=== PATIENT | male | born 1980 | race Caucasian/White ===

== ENCOUNTER 2018-11-23 18:13 | Emergency (ER) | payer MEDICAID, OTHER ==
[~2018-11-23] VITALS: Ht 195.6 cm; Wt 130.8 kg
[2018-11-23] MEDS ORDERED: SODIUM CHLORIDE FLUSH 10ML SYR IVF ONE (18:30)
[2018-11-23 18:55] LABS: BASOPHILS # (AUTO) 0.05 x10^3/uL (0-0.1); BASOPHILS % (AUTO) 1 % (0-1); EOSINOPHILS % (AUTO) 3 % (1-7); LYMPHOCYTES # (AUTO) 2.26 x10^3/uL (1-3.4); LYMPHOCYTES % (AUTO) 28 % (22-44); MD NO; MEAN CORPUSCULAR HEMOGLOBIN 31.6 pg (27.5-34.5); MEAN CORPUSCULAR VOLUME 95.6 fL (81-97); MEAN PLATELET VOLUME 7.6 fL (7.4-10.4); MONOCYTES # (AUTO) 0.52 x10^3/uL (0.2-0.8); MONOCYTES % (AUTO) 7 % (2-9); NEUTROPHILS # (AUTO) 5.03 x10^3/uL (1.8-6.8); NEUTROPHILS % (AUTO) 62 % (42-75); PLATELET COUNT 278 x10^3/uL (130-400); RED BLOOD COUNT 5.02 x10^6/uL (4.38-5.82)
[2018-11-23 19:05] LABS: ALBUMIN 4.4 g/dL (3.4-5.0); ANION GAP 6 mmol/L (5-15); CHLORIDE 108 mmol/L (98-107)
[2018-11-23 19:08] LABS: ALANINE AMINOTRANSFERASE 40 U/L (12-78); ALKALINE PHOSPHATASE 69 U/L (45-117); BILIRUBIN,TOTAL 1.1 mg/dL (0.2-1.0); TOTAL PROTEIN 7.4 g/dL (6.4-8.2)
[2018-11-23 19:11] LABS: MICROSCOPIC INDICATED
[2018-11-23 19:21] LABS: CULTURE INDICATED? NO
[2018-11-23] MEDS ORDERED: ONDANSETRON 2MG/ML, 2ML ONE (19:54)
[2018-11-23] MEDS ORDERED: MORPHINE SULFATE 4 MG/ML, 1ML ONE (19:54)
[2018-11-23] MEDS ORDERED: ONDANSETRON 2MG/ML, 2ML IVPush ONE (20:00)
[2018-11-23] MEDS ORDERED: MORPHINE SULFATE 4 MG/ML, 1ML IVPush PRN (20:00)
--- NOTE | 2018-11-23 20:01 | NUR ---
first contact with pt. pt c/o right flank and back pain x 1 week with nausea, worse today, denies painful urination, hx kidney stone and infection. pt's aox4. resps even and unlabored. all monitors in place. call light within reach.pa at bedside to evaluate.
--- NOTE | 2018-11-23 20:06 | NUR ---
pt medicated per emar. pt tolerated well.
--- NOTE | 2018-11-23 20:21 | NUR ---
PT REMAINS US STILL.
[2018-11-23 20:28] VITALS: BP 115/67
--- NOTE | 2018-11-23 20:46 | NUR ---
ORTHOSTATIC IS DONE.
[2018-11-23] MEDS ORDERED: OXYcodone/APAP 7.5/325MG TABLET ONE (21:19)
--- NOTE | 2018-11-23 21:21 | NUR ---
pt medicated per emar for pain. pt tolerated well.
--- NOTE | 2018-11-23 21:26 | NUR ---
PT GIVEN DC INSTRUCTIONS AND SCRIPTS. PT EDUCATED REGARDING DC MEDICATIONS. PT WHEELED TO DC. PT'S AOX4. RESPS EVEN AND UNLABORED. NO ACUTE DISTRESS AT DC.
[2018-11-23] MEDS ORDERED: OXYcodone/APAP 7.5/325MG TABLET PO ONE (21:30)
== END 2018-11-23 21:27 | disposition home or self-care (01) ==
LOC: ED 19:58
DX: R10.11 Right upper quadrant pain (principal); R11.0 Nausea; R16.1 Splenomegaly, not elsewhere classified; Z87.891 Personal history of nicotine dependence
CPT/HCPCS: 36415; 76700; 80053; 81001; 83690; 85025; 93005; 96374; 96375; 99284; J2270; J2405

== ENCOUNTER 2018-12-03 19:01 | Emergency (ER) | payer MEDICAID, OTHER ==
[~2018-12-03] VITALS: Ht 195.6 cm; Wt 130.1 kg
[2018-12-03] MEDS ORDERED: hydrOXYzine 50 MG/ML IM PRN (19:30)
[2018-12-03 19:44] LABS: BASOPHILS # (AUTO) 0.05 x10^3/uL (0-0.1); BASOPHILS % (AUTO) 1 % (0-1); EOSINOPHILS # (AUTO) 0.22 x10^3/uL (0-0.4); EOSINOPHILS % (AUTO) 2 % (1-7); LYMPHOCYTES # (AUTO) 2.55 x10^3/uL (1-3.4); LYMPHOCYTES % (AUTO) 28 % (22-44); MD NO; MEAN CORPUSCULAR HEMOGLOBIN 32.1 pg (27.5-34.5); MEAN CORPUSCULAR HGB CONC 33.9 g/dL (33.2-36.2); MEAN CORPUSCULAR VOLUME 94.5 fL (81-97); MEAN PLATELET VOLUME 7.2 fL (7.4-10.4); MONOCYTES # (AUTO) 0.56 x10^3/uL (0.2-0.8); MONOCYTES % (AUTO) 6 % (2-9); NEUTROPHILS # (AUTO) 5.83 x10^3/uL (1.8-6.8); NEUTROPHILS % (AUTO) 63 % (42-75); PLATELET COUNT 264 x10^3/uL (130-400); RED BLOOD COUNT 4.98 x10^6/uL (4.38-5.82)
[2018-12-03 19:56] LABS: ALBUMIN 3.9 g/dL (3.4-5.0); ANION GAP 8 mmol/L (5-15); CALCIUM 8.7 mg/dL (8.5-10.1); CHLORIDE 110 mmol/L (98-107); CREATININE 0.94 mg/dL (0.7-1.3)
[2018-12-03 20:00] LABS: TROPONIN I < 0.015 ng/mL (0.000-0.045)
[2018-12-03] MEDS ORDERED: LORazepam 2 MG/ML, 1ML ONE (20:15)
[2018-12-03] MEDS ORDERED: LORazepam 2 MG/ML, 1ML IM ONE (20:30)
--- NOTE | 2018-12-03 20:38 | NUR ---
PT RESTING IN GURNEY, PT STATES HE FEELS MUCH BETTER AND MORE RELAXED AFTER MEDICATION. PT UP FOR RECHECK. CALL LIGHT WITHIN REACH
[2018-12-03 21:17] VITALS: BP 140/86
== END 2018-12-03 21:23 | disposition home or self-care (01) ==
LOC: ED 21:17
DX: R07.89 Other chest pain (principal); F41.1 Generalized anxiety disorder; I10 Essential (primary) hypertension
CPT/HCPCS: 36415; 71045; 80048; 82040; 84484; 85025; 93005; 96372; 99284; J2060